=== PATIENT | male | born 1975 | race Caucasian/White ===

== ENCOUNTER 2025-05-01 10:04 | Outpatient (AMB) | payer OTHER, SELFPAY ==
--- NOTE | 2025-05-01 10:06 | MHC.PC.OV ---
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 Allergies No Known Allergies (No Known Allergies*) Allergy (Unverified 05/01/25 10:44) Medication List - Last Reconciled 05/01/25 by RADHA Mitchell No Known Home Meds Tobacco use date assessed: 05/01/25 Dental Screening Dental Screen Date: 05/01/25 Did you have a dental visit in the last 12 months?: Yes Did you have a dental problem in the last 6 months where you did not have access to dental care?: No Was dental information given to patient?: Patient has dentist HPI 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 The patient reports a history of onychomycosis affecting the great toe, which has been persistent despite the use of topical treatments. He has been advised against oral antifungal medications due to potential hepatotoxicity. The patient has vitiligo, which began approximately ten years ago at the age of 39. The condition was noted to be stress-related, as informed by a certified prosthetist vice president. The patient has a history of nephrolithiasis, with two episodes of kidney stones, the first occurring at age 29 and the second at age 42. Both episodes involved small stones that were extremely painful but did not require surgical intervention. Family history is significant for diabetes in both grandmothers, heart disease, hyperlipidemia, hypertension, and end-stage renal disease in the father, and schizophrenia in the mother. [facility] Medical History (Updated 05/02/25 @ 12:49 by RADHA Mitchell) HTN (hypertension) Heart disease Kidney stones Onychomycosis Vitiligo Surgical History No pertinent past surgical history Family History (Updated 05/02/25 @ 12:49 by RADHA Mitchell) Maternal Grandmother Diabetes Paternal Grandmother Diabetes Maternal Uncle Colon cancer Father Hypertension Heart disease Kidney failure Substance abuse Mother Mental health disorder Substance abuse Brother Substance abuse Other ESRD (end stage renal disease) HLD (hyperlipidemia) Schizophrenia Social History Household Members: Spouse and Children Housing: House Alcohol intake: current Alcohol intake frequency: a few times a month Patient Tobacco Use Status: Former Tobacco user e-Cigarette/Vaping Use: Never Used service: No Current occupational status: employed 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 1. Little interest or pleasure in doing things: not at all 2. Feeling down, depressed, or hopeless: not at all 3. Trouble falling or staying asleep, or sleeping too much: not at all 4. Feeling tired or having little energy: not at all 5. Poor appetite or overeating: not at all 6. Feeling bad about yourself - or that you are a failure or have let yourself or your family down: not at all 7. Trouble concentrating on things, such as reading the newspaper or watching television: not at all 8. Moving or speaking so slowly that other people could have noticed. Or the opposite - being so fidgety or restless that you have been moving around a lot more than usual: not at all 9. Thoughts that you would be better off or of hurting yourself in some way: not at all Total score: 0 Depression Screening Interpretation: Negative Depression Screening Done: Yes [id number] - PHQ-9 Billing: Yes Source: Developed by Drs. Remi Oneil, Dione Haider, Gaurang Haddad and colleagues, with an educational magalie from [employer]. Thrive Questionnaire Date Thrive assessed: 05/01/25 I am a: Patient What is your living situation today?: I have a steady place to live Within the past 12 months, did the food you bought not last and you didn't have the money to get more?: Never true Within the past 12 months, did you worry whether your food would run out before you got money to buy more?: Never true Do you have trouble paying for medicines?: No Do you have trouble getting transportation to medical appointments?: No Do you have trouble paying your heating and electricity bill?: No Do you have trouble taking care of your child, family member or friend?: No Do you have trouble with day-to-day activities such as bathing, preparing meals, shopping, managing finances, etc.?: No Are you currently unemployed and looking for a job?: No Are you interested in more education?: No Please select the resources that you would like help with: None Currently or been in a relationship where the following occur: No concerns reported THRIVE Score: 0 AUDIT C Alcohol Use Questionnaire (AUDIT-C) 1. How often do you have a drink containing alcohol?: 2-4 times a month 2. How many drinks containing alcohol do you have on a typical day when you are drinking?: 1 or 2 3. How often do you have six or more drinks on one occasion?: Never Total Score: 2 KYA-7 AMB Questionnaire KYA-7 Date KYA - 7 assessed: 05/01/25 Feeling nervous, anxious, or on edge: 0 = Not at all Not being able to stop or control worryin = Several days Worrying too much about different things: 1 = Several days Trouble relaxin = Not at all Being so restless that it is hard to sit still: 1 = Several days Becoming easily annoyed or irritable: 1 = Several days Feeling afraid as if something awful might happen: 0 = Not at all Total KYA-7 score (0-4 normal; 5-9 mild; 10-14 moderate; 15-21 severe): 4 Source: Developed by Drs. Remi Oneil, Dione Haider, Gaurang Haddad and colleagues, with an educational magalie from [employer] KYA-7 Assessment Billing KYA-7 Assessment Tool: KYA-7 Assessment 01790 Review of Systems Const Denies headache(s) Eyes Denies loss of vision ENT Denies vertigo, Denies dizziness, Denies headache(s) and Denies sore throat Card Denies chest pain, Denies leg edema and Denies lightheadedness Resp Denies cough, Denies hemoptysis and Denies wheezing GI Denies abdominal pain, Denies melena, Denies constipation, Reports heartburn, Denies diarrhea and Denies vomiting Denies dysuria, Denies urinary frequency and Denies urinary urgency Musc Denies arthralgias, Denies joint swelling, Denies numbness and Denies tingling Skin/Breast Reports nail changes (toenail fungus) and Reports other (vitiligo) Neuro Denies Abnormal speech present, Denies behavioral changes, Denies vertigo, Denies dizziness, Denies headache(s), Denies loss of vision, Denies memory loss, Denies numbness and Denies tingling Psych Denies anxiety, Denies behavioral changes, Denies depression, Denies memory loss and Denies panic attacks Dagoberto/Lymph Denies easy bleeding and Denies easy bruising Aller/Immun Denies wheezing Physical exam (Primary Care) Vital Signs: Last Vital Signs Temp 97.0 F 05/01/25 10:08 Pulse 96 05/01/25 10:08 BP 124/74 05/01/25 10:08 Pulse Ox 95 05/01/25 10:08 Oxygen Delivery Method Room Air 05/01/25 10:08 BMI result Body Mass Index 29.6 Tobacco/Smoking Status: Tobacco use Status Tobacco use date assessed 05/01/25 05/01/25 10:17 Patient Tobacco Use Status Former Tobacco user 05/01/25 10:17 e-Cigarette/Vaping Use Never Used 05/01/25 10:17 PHQ-9: PHQ-9 Score PHQ-9: Total score 0 05/01/25 10:52 Depression Screening Interpretation: Negative Thrive Assessment: Date of Thrive Assessment Date Thrive assessed 05/01/25 05/01/25 10:07 Currently or been in a relationship where the following occur: No concerns reported Const General: healthy appearing, no acute distress, alert and awake Nutritional Appearance: well nourished Orientation/consciousness: oriented to person, oriented to place and oriented to time HENMT Ears: TM's normal bilaterally General nose exam: Normal nasal mucous membranes and turbinates present Eyes Conjunctivae: conjunctivae normal Sclerae: sclerae normal Pupils: Equal, round and reactive pupils present Neck Neck: Yes no lymphadenopathy and Yes no JVD Thyroid: Thyroid normal Carotids: no bruits Resp Effort & Inspection: normal respiratory effort and not tachypneic Auscultation: no crackles, no rales, no rhonchi and no wheezes Cardio Rate: regular rate Rhythm: regular rhythm Heart sounds: S1 normal heart sound present, S2 normal heart sound present, no murmurs and normal S1 and S2 Peripheral pulses: Peripheral pulses 2+ throughout GI Palpation (GI): Soft to palpation, nontender, no hepatomegaly and no splenomegaly Auscultation: normal bowel sounds General: Yes no CVA tenderness Back/Spine/Pelvis Back: no CVA tenderness Skin General skin exam: dry skin Lesions: lesion noted (vitiligo widespread on extremities) Nails: discolored (right great and fourth toenails) Neuro General: oriented to person, oriented to place and oriented to time Cranial nerves: Yes Equal, round and reactive pupils present Speech: No Abnormal speech present Gait exam (Neuro): Normal gait present Motor exam (neuro): no tremor noted Extrem Right upper extremity: full ROM Left upper extremity: full ROM Right lower extremity: full ROM; no edema Left lower extremity: full ROM; no edema Psych Mental Status: mental status grossly normal Speech and movement: Normal speech and movement present Affect: normal affect Attitude: cooperative Thought process: Normal thought process present Coding Level of Care Code New Pt Level 4 (40076) Diagnoses Vitiligo L80 Onychomycosis B35.1 Additional Codes KYA-7 Assessment Billing - KYA-7 Assessment Tool: KYA-7 Assessment 52551 ([id number]) PHQ-9 - 49393 - PHQ-9 Billing: Yes ([id number]) Time Spent (min) 39 Assessment & Plan Assessment & Plan (1) Vitiligo: Code(s): L80 - Vitiligo Category: Medical (2) Onychomycosis: Code(s): B35.1 - Tinea unguium Category: Medical Plan The patient will undergo fasting laboratory tests to assess overall health status. A Cologuard test is recommended for colon cancer screening due to the patient's low-risk status. The patient is advised to return for a comprehensive physical examination and lab review to establish a detailed health plan. The patient is not currently on an treatment for vitiligo management. Will continue to monitor Toenail fungus was treated before by steel welder and he is planning on making an appt for treatment options Patient was informed and verbally consented to the use of an ambient scribe for clinic note documentation during this visit. Orders: Orders Comprehensive [place]. Panel Fast Today Z00.00 - Encounter for general adult medical examination without abnormal findings Lipid Panel Today Z00.00 - Encounter for general adult medical examination without abnormal findings TSH reflex Free T4 Today Z00.00 - Encounter for general adult medical examination without abnormal findings Complete Blood Count Auto Diff Today Z00.00 - Encounter for general adult medical examination without abnormal findings UA CC w/rflx Micro + Cult Today Z00.00 - Encounter for general adult medical examination without abnormal findings Vitamin D 25-OH Total Today Z00.00 - Encounter for general adult medical examination without abnormal findings Referrals Cologuard Test Z12.11 - Encounter for screening for malignant neoplasm of colon, Z12.12 - Encounter for screening for malignant neoplasm of rectum Cologuard Test Z12.11 - Encounter for screening for malignant neoplasm of colon, Z12.12 - Encounter for screening for malignant neoplasm of rectum
[2025-05-01 10:08] VITALS: BP 124/74; PULSE 96; TEMP 36.1; O2SAT 95; BMI 29.6
== END 2025-05-01 11:00 | disposition home or self-care (01) ==
LOC: HO.HMCH 10:04
DX: L80 Vitiligo (principal); B35.1 Tinea unguium

== ENCOUNTER → 2025-05-01 10:04 | Outpatient (BNVA) | payer OTHER, SELFPAY | DX: L80 Vitiligo (principal); B35.1 Tinea unguium; Z87.442 Personal history of urinary calculi | CPT/HCPCS: 96127 ==

== ENCOUNTER 2025-05-02 08:30 | Outpatient (REF) | payer OTHER, SELFPAY ==
[2025-05-02 08:46] LABS: MANUAL DIFF FLAG NO
[2025-05-02 09:31] LABS: Hematocrit 43.0 % (42.0-52.0); Hemoglobin 15.0 g/dl (14.0-18.0); Imm Gran Abs Auto 0.01 X10*3/uL (0.00-0.03); Imm Gran Pct Auto 0.2 % (0.0-0.4); Lymphocytes Absolute Auto 2.2 X10*3/uL (1.2-4.9); Mean Corpuscular HGB Conc 34.9 g/dl (31.0-36.0); Mean Corpuscular Hemoglobin 28.4 pg (27.0-33.0); Mean Corpuscular Volume 81.3 fL (80.0-98.0); NRBC Abs Auto 0.000 X10*3/uL (0.0-0.012); NRBC Pct Auto 0.0 /100WBC (0.0-0.2); Platelet Count 284 X10*3/uL (160-400); Red Blood Count 5.29 X10*6/uL (4.60-5.80); White Blood Count 5.3 X10*3/uL (4.8-10.8)
[2025-05-02 10:03] LABS: Alanine Aminotransferase 63 U/L (0-40); Albumin Level 4.3 g/dL (3.5-5.0); Alkaline Phosphatase 60 U/L (39-117); Anion Gap 11 (12-20); Aspartate Amino Transferase 32 U/L (5-37); Blood Urea Nitrogen 12 mg/dL (9-16); Calcium 8.4 mg/dL (8.4-10.2); Carbon Dioxide 25 mmol/L (22-29); Chloride 109 mmol/L (96-108); Cholesterol 260 mg/dL (<200); Estimated Glomerular Filt Rate > 60; HDL Cholesterol 45 mg/dL (>40); Potassium 4.2 mmol/L (3.3-5.1); Sodium 141 mmol/L (135-145); Total Protein 7.0 g/dL (6.5-8.0); Triglycerides 116 mg/dL (<150)
[2025-05-02 10:21] LABS: Appearance Urine Clear; Glucose Urine UA Negative (Negative); PH 6.5 (5.0-9.0); Specific Gravity - Urine 1.020 (1.005-1.025)
== END 2025-05-02 08:31 | disposition home or self-care (01) ==
LOC: HO.LAB 08:30
DX: Z00.00 Encounter for general adult medical examination without abnormal findings (principal)
CPT/HCPCS: 36415; 80053; 80061; 81003; 82306; 84443; 85025

== ENCOUNTER 2025-06-20 11:02 | Outpatient (AMB) | payer OTHER, SELFPAY ==
--- NOTE | 2025-06-20 11:19 | A.OFFPC_ITS ---
Vital Signs 06/20/25 11:20 Height 5 ft 8.75 in Weight 203 lb 2 oz BMI 30.2 BP 122/78 Blood Pressure Location Lt brachial Position Sitting Pulse 76 Pulse Source Pulse Oximeter Temp 97.1 F Temp Source Temporal Artery Scan Pulse Oximetry (%) 97 Oxygen Delivery Method Room Air Intake Visit Reasons: Annual Exam Intake Note: Patient is here today for a physical. 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 per policy Accompanied by: Self / Same As Patient Allergies No Known Allergies (No Known Allergies*) Allergy (Verified 06/20/25 11:26) Medication List - Last Reconciled 06/20/25 by RADHA Mitchell No Known Home Meds Tobacco use date assessed: 06/20/25 Dental Screening Dental Screen Date: 05/01/25 HPI Annual Exam HPI Details Dentist: up to date Eye: up to date Snellen: Right: Left: Corrected vision: yes-glasses STI screening: Colonoscopy: cologuard was negative Pap Smer:n/a PHQ-9: Flu: up to date COVID: x5 Tdap: 2022 Diet:reports that he likes red meat, but has been cutting back, Exercise: The patient is a 49-year-old male presenting for a wellness visit and evaluation of laboratory results. The patient has a history of hyperlipidemia, with recent laboratory results showing an LDL cholesterol level of 192 mg/dL, which is significantly elevated above the desired level of less than 100 mg/dL. The patient acknowledges a family history of hyperlipidemia and has gained weight over the past 5-6 years, reaching his heaviest weight. He reports a diet that includes red meat, pork, and sweets, with occasional exercise, although he has struggled to maintain a consistent regimen. The patient also presents with a slightly low vitamin D level, which is common in the area due to limited sunlight exposure. He has been advised to take a vitamin D supplement to address this deficiency. Additionally, the patient has an elevated liver enzyme level, which may be influenced by occasional alcohol consumption and Tylenol use. He denies any abdominal pain and reports infrequent use of alcohol and Tylenol. Preventative care measures include a recent negative result from a colon cancer screening stool test, an influenza vaccination received two days ago, and a tetanus vaccination in 2022. [facility] Medical History (Updated 06/20/25 @ 11:29 by RADHA Mitchell) HTN (hypertension) Heart disease Kidney stones Onychomycosis Vitiligo Surgical History No pertinent past surgical history Family History Maternal Grandmother Diabetes Paternal Grandmother Diabetes Maternal Uncle Colon cancer Father Hypertension Heart disease Kidney failure Substance abuse Mother Mental health disorder Substance abuse Brother Substance abuse Other ESRD (end stage renal disease) HLD (hyperlipidemia) Schizophrenia Social History Household Members: Spouse and Children Housing: House Alcohol intake: current Alcohol intake frequency: a few times a month Patient Tobacco Use Status: Former Tobacco user e-Cigarette/Vaping Use: Never Used Second Hand Smoke Exposure: Yes service: No Current occupational status: employed 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 needs: No Hearing needs: No Vision needs: Yes Questionnaire Thrive Questionnaire Date Thrive assessed: 05/01/25 I am a: Patient What is your living situation today?: I have a steady place to live Within the past 12 months, did the food you bought not last and you didn't have the money to get more?: Never true Within the past 12 months, did you worry whether your food would run out before you got money to buy more?: Never true Do you have trouble paying for medicines?: No Do you have trouble getting transportation to medical appointments?: No Do you have trouble paying your heating and electricity bill?: No Do you have trouble taking care of your child, family member or friend?: No Do you have trouble with day-to-day activities such as bathing, preparing meals, shopping, managing finances, etc.?: No Are you currently unemployed and looking for a job?: No Are you interested in more education?: No Please select the resources that you would like help with: None Currently or been in a relationship where the following occur: No concerns reported THRIVE Score: 0 KYA-7 AMB Questionnaire KYA-7 Date KYA - 7 assessed: 05/01/25 Source: Developed by Drs. Remi Oneil, Dione Haider, Gaurang Haddad and colleagues, with an educational magalie from [employer]. Review of Systems Const Denies headache(s) Eyes Denies loss of vision ENT Denies vertigo, Denies dizziness, Denies headache(s) and Denies sore throat Card Denies chest pain, Denies leg edema and Denies lightheadedness Resp Denies cough, Denies hemoptysis and Denies wheezing GI Denies abdominal pain, Denies melena, Denies constipation, Denies diarrhea and Denies vomiting Denies dysuria, Denies urinary frequency and Denies urinary urgency Musc Denies arthralgias, Denies joint swelling, Denies numbness and Denies tingling Neuro Denies Abnormal speech present, Denies behavioral changes, Denies vertigo, Denies dizziness, Denies headache(s), Denies loss of vision, Denies memory loss, Denies numbness and Denies tingling Psych Denies anxiety, Denies behavioral changes, Denies depression, Denies memory loss and Denies panic attacks Dagoberto/Lymph Denies easy bleeding and Denies easy bruising Aller/Immun Denies wheezing Physical exam (Primary Care) Vital Signs: Last Vital Signs Temp 97.1 F 06/20/25 11:20 Pulse 76 06/20/25 11:20 BP 122/78 06/20/25 11:20 Pulse Ox 97 06/20/25 11:20 Oxygen Delivery Method Room Air 06/20/25 11:20 BMI result Body Mass Index 30.2 Tobacco/Smoking Status: Tobacco use Status Tobacco use date assessed 06/20/25 06/20/25 11:24 Patient Tobacco Use Status Former Tobacco user 06/20/25 11:24 e-Cigarette/Vaping Use Never Used 06/20/25 11:24 Thrive Assessment: Date of Thrive Assessment Date Thrive assessed 05/01/25 06/20/25 11:24 Currently or been in a relationship where the following occur: No concerns reported Const General: healthy appearing, no acute distress, alert and awake Nutritional Appearance: well nourished Orientation/consciousness: oriented to person, oriented to place and oriented to time HENMT Ears: TM's normal bilaterally General nose exam: Normal nasal mucous membranes and turbinates present Eyes Conjunctivae: conjunctivae normal Sclerae: sclerae normal Pupils: Equal, round and reactive pupils present Neck Neck: Yes no lymphadenopathy and Yes no JVD Thyroid: Thyroid normal Carotids: no bruits Resp Effort & Inspection: normal respiratory effort and not tachypneic Auscultation: no crackles, no rales, no rhonchi and no wheezes Cardio Rate: regular rate Rhythm: regular rhythm Heart sounds: no murmurs and normal S1 and S2 GI Palpation (GI): Soft to palpation, nontender, no hepatomegaly and no splenomegaly Auscultation: normal bowel sounds Skin General skin exam: no rashes or lesions noted and dry skin Neuro General: oriented to person, oriented to place and oriented to time Cranial nerves: Yes Equal, round and reactive pupils present Speech: No Abnormal speech present Gait exam (Neuro): Normal gait present Motor exam (neuro): no tremor noted Deep tendon reflexes (DTR's): Right triceps reflex intensity grade: 2+, Left triceps reflex intensity grade: 2+, Rt Biceps (C5, C6): 2+, Left biceps reflex intensity grade: 2+, Right brachioradialis reflex intensity grade: 2+, Left brachioradialis reflex intensity grade: 2+, Right patellar reflex intensity grad e: 2+ and Left patellar reflex intensity grade: 2+ Extrem Right upper extremity: full ROM Left upper extremity: full ROM Right lower extremity: full ROM; no edema Left lower extremity: full ROM; no edema Psych Mental Status: mental status grossly normal Speech and movement: Normal speech and movement present Affect: normal affect Attitude: cooperative Thought process: Normal thought process present Results Reviewed Results Reviewed: Laboratory Tests 05/02/25 05/02/25 08:38 08:45 WBC 5.3 RBC 5.29 Hgb 15.0 Hct 43.0 MCV 81.3 MCH 28.4 MCHC 34.9 RDW 13.4 Plt Count 284 MPV 10.7 Immature Gran % (Auto) 0.2 Neut % (Auto) 48.6 Lymph % (Auto) 41.3 H Sodium 141 Potassium 4.2 Chloride 109 H Carbon Dioxide 25 Anion Gap 11 L BUN 12 Creatinine 0.72 Estimated GFR > 60 Fasting Glucose 100 H Calcium 8.4 Total Bilirubin 0.4 AST 32 ALT 63 H Alkaline Phosphatase 60 Total Protein 7.0 Albumin 4.3 Triglycerides 116 Cholesterol 260 H LDL Cholesterol, Calc 192 H HDL Cholesterol 45 25-OH Vitamin D Total 24.6 L TSH 1.29 Urine Color Yellow Urine Appearance Clear Urine pH 6.5 Ur Specific [place] 1.020 Urine Protein Negative Urine Glucose (UA) Negative Urine Ketones Negative Urine Blood Negative Urine Nitrite Negative Ur Leukocyte Esterase Negative Coding Level of Care Code Est Pt Prev Care 40-64y([id number]) Diagnoses Annual physical exam Z00.00 Onychomycosis B35.1 Vitiligo L80 Hyperlipidemia, unspecified hyperlipidemia type E78.5 Hyperlipidemia type: unspecified Vitamin D deficiency E55.9 ALT (SGPT) level raised R74.01 Time Spent (min) 37 Assessment & Plan Assessment & Plan (1) Annual physical exam: Code(s): Z00.00 - Encounter for general adult medical examination without abnormal findings Category: Medical Plan: - Colon cancer screening: Negative stool test result - Influenza vaccination: Administered two days ago - Tetanus vaccination: Administered in 2022 - Vitamin D supplementation recommended due to deficiency (2) Onychomycosis: Code(s): B35.1 - Tinea unguium Category: Medical Plan: Toenail fungus was treated before by animal nutrition teacher and he is planning on making an appt for treatment options (3) Vitiligo: Code(s): L80 - Vitiligo Category: Medical Plan: The patient is not currently on an treatment for vitiligo management. Will continue to monitor (4) HLD (hyperlipidemia): Code(s): E78.5 - Hyperlipidemia, unspecified Category: Medical Qualifiers: Hyperlipidemia type: unspecified Qualified Code(s): E78.5 - Hyperlipi demia, unspecified Plan: The patient has been advised to make dietary changes to reduce cholesterol intake, including moderating consumption of red meat, pork, and fried foods. A low-dose statin, rosuvastatin 5 mg, has been prescribed to help lower LDL cholesterol levels. Follow-up blood work is planned in three months to assess the effectiveness of the treatment and dietary modifications. (5) Vitamin D deficiency: Code(s): E55.9 - Vitamin D deficiency, unspecified Category: Medical Plan: The patient is recommended to take a vitamin D supplement, either 50 mcg or 2000 units, to address the deficiency. The supplementation is suggested due to limited sunlight exposure in the area, which contributes to the deficiency. (6) ALT (SGPT) level raised: Code(s): R74.01 - Elevation of levels of liver transaminase levels Category: Medical Plan: The patient is advised to monitor alcohol and Tylenol intake, as these can contribute to elevated liver enzymes. Re-evaluation of liver function is suggested during the next follow-up visit. Orders: Orders Comprehensive [place]. Panel Fast 3 Months E55.9 - Vitamin D deficiency, unspecified, E78.5 - Hyperlipidemia, unspecified, R74.01 - Elevation of levels of liver transaminase levels Lipid Panel 3 Months E55.9 - Vitamin D deficiency, unspecified, E78.5 - Hype rlipidemia, unspecified, R74.01 - Elevation of levels of liver transaminase levels TSH reflex Free T4 3 Months E55.9 - Vitamin D deficiency, unspecified, E78.5 - Hyperlipidemia, unspecified, R74.01 - Elevation of levels of liver transaminase levels UA CC w/rflx Micro + Cult 3 Months E55.9 - Vitamin D deficiency, unspecified, E78.5 - Hyperlipidemia, unspecified, R74.01 - Elevation of levels of liver transaminase levels Vitamin D 25-OH Total 3 Months E55.9 - Vitamin D deficiency, unspecified, E78.5 - Hyperlipidemia, unspecified, R74.01 - Elevation of levels of liver transaminase levels Medications: New cholecalciferol (vitamin D3) 50 mcg PO DAILY 90 caps 3RF rosuvastatin 5 mg PO DAILY 90 tabs 3RF
[2025-06-20 11:20] VITALS: BP 122/78; PULSE 76; TEMP 36.2; O2SAT 97; BMI 30.2
== END 2025-06-20 11:51 | disposition home or self-care (01) ==
LOC: HO.HMCH 11:03
DX: Z00.00 Encounter for general adult medical examination without abnormal findings (principal); B35.1 Tinea unguium; L80 Vitiligo; E78.5 Hyperlipidemia, unspecified; E55.9 Vitamin D deficiency, unspecified; R74.01 Elevation of levels of liver transaminase levels

== ENCOUNTER 2025-07-03 13:16 | Outpatient (REF) | payer OTHER, SELFPAY ==
[2025-07-03 14:56] LABS: Alanine Aminotransferase 36 U/L (0-40); Albumin Level 4.7 g/dL (3.5-5.0); Alkaline Phosphatase 55 U/L (39-117); Anion Gap 10 (12-20); Aspartate Amino Transferase 32 U/L (5-37); Blood Urea Nitrogen 10 mg/dL (9-16); Calcium 9.4 mg/dL (8.4-10.2); Carbon Dioxide 26 mmol/L (22-29); Chloride 106 mmol/L (96-108); Cholesterol 185 mg/dL (<200); Estimated Glomerular Filt Rate > 60; HDL Cholesterol 44 mg/dL (>40); Potassium 4.0 mmol/L (3.3-5.1); Sodium 138 mmol/L (135-145); Total Protein 7.2 g/dL (6.5-8.0); Triglycerides 108 mg/dL (<150)
== END 2025-07-03 13:17 | disposition home or self-care (01) ==
LOC: HO.LAB 13:16
PROVIDERS: Visit Provider Student in an Organized Health Care Education/Training Program
DX: B35.1 Tinea unguium (principal); R74.01 Elevation of levels of liver transaminase levels; E78.5 Hyperlipidemia, unspecified; E55.9 Vitamin D deficiency, unspecified
CPT/HCPCS: 36415; 80053; 80061; 82306; 84443

== ENCOUNTER 2025-09-13 13:46 | Outpatient (REF) | payer OTHER, SELFPAY ==
[2025-09-13 15:21] LABS: Alanine Aminotransferase 57 U/L (0-40); Albumin Level 4.8 g/dL (3.5-5.0); Alkaline Phosphatase 62 U/L (39-117); Aspartate Amino Transferase 65 U/L (5-37); Total Protein 7.5 g/dL (6.5-8.0)
== END 2025-09-13 13:47 | disposition home or self-care (01) ==
LOC: HO.LAB 13:46
PROVIDERS: Visit Provider Student in an Organized Health Care Education/Training Program
DX: B35.1 Tinea unguium (principal)
CPT/HCPCS: 36415; 80076

== ENCOUNTER 2025-09-19 13:51 | Outpatient (AMB) | payer OTHER, SELFPAY ==
[2025-09-19 14:22] VITALS: BP 122/80; PULSE 78; TEMP 36.2; O2SAT 96
--- NOTE | 2025-09-19 14:22 | MHC.PC.OV ---
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 The patient is under the care of a metal furniture assembler for a nail condition and was started on an antifungal medication. Blood work was performed twice, initially showing normal liver enzymes, but a subsequent test revealed a slight elevation. The patient is also on cholesterol medication, which he takes regularly. He was aware that his metal furniture assembler monitors liver enzymes due to the antifungal treatment, which can cause them to increase. 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 Results - Labs: Recent blood work shows slightly elevated liver enzymes. - Labs: Cholesterol has come down slightly. [facility] Medical History (Updated 09/19/25 @ 14:44 by RADHA Mitchell) HTN (hypertension) Heart disease Kidney stones Onychomycosis Vitiligo Surgical History No pertinent past surgical history Family History Maternal Grandmother Diabetes Paternal Grandmother Diabetes Maternal Uncle Colon cancer Father Hypertension Heart disease Kidney failure Substance abuse Mother Mental health disorder Substance abuse Brother Substance abuse Other ESRD (end stage renal disease) HLD (hyperlipidemia) Schizophrenia Social History Household Members: Spouse and Children Housing: House Alcohol intake: current Alcohol intake frequency: a few times a month Patient Tobacco Use Status: Former Tobacco user e-Cigarette/Vaping Use: Never Used Second Hand Smoke Exposure: Yes service: No Current occupational status: employed Current occupation: Cognitive needs: No Hearing needs: No Vision needs: Yes Questionnaire Thrive Questionnaire Date Thrive assessed: 05/01/25 I am a: Patient What is your living situation today?: I have a steady place to live Within the past 12 months, did the food you bought not last and you didn't have the money to get more?: Never true Within the past 12 months, did you worry whether your food would run out before you got money to buy more?: Never true Do you have trouble paying for medicines?: No Do you have trouble getting transportation to medical appointments?: No Do you have trouble paying your heating and electricity bill?: No Do you have trouble taking care of your child, family member or friend?: No Do you have trouble with day-to-day activities such as bathing, preparing meals, shopping, managing finances, etc.?: No Are you currently unemployed and looking for a job?: No Are you interested in more education?: No Please select the resources that you would like help with: None Currently or been in a relationship where the following occur: No concerns reported THRIVE Score: 0 KYA-7 AMB Questionnaire KYA-7 Date KYA - 7 assessed: 05/01/25 Source: Developed by Drs. Remi Oneil, Dione Haider, Gaurang Haddad and colleagues, with an educational magalie from [employer]. Review of Systems Narrative Review of Systems - Cardiovascular: Denies chest pain. - Respiratory: Denies dyspnea. Const Denies headache(s) Eyes Denies loss of vision ENT Denies vertigo, Denies dizziness, Denies headache(s) and Denies sore throat Card Denies chest pain, Denies leg edema and Denies lightheadedness Resp Denies cough, Denies hemoptysis and Denies wheezing GI Denies abdominal pain, Denies melena, Denies constipation, Denies diarrhea and Denies vomiting Denies dysuria, Denies urinary frequency and Denies urinary urgency Musc Denies arthralgias, Denies joint swelling, Denies numbness and Denies tingling Neuro Denies Abnormal speech present, Denies behavioral changes, Denies vertigo, Denies dizziness, Denies headache(s), Denies loss of vision, Denies memory loss, Denies numbness and Denies tingling Psych Denies anxiety, Denies behavioral changes, Denies depression, Denies memory loss and Denies panic attacks Dagoberto/Lymph Denies easy bleeding and Denies easy bruising Aller/Immun Denies wheezing Physical exam (Primary Care) Vital Signs: Last Vital Signs Temp 97.1 F 09/19/25 14:22 Pulse 78 09/19/25 14:22 BP 122/80 09/19/25 14:22 Pulse Ox 96 09/19/25 14:22 Oxygen Delivery Method Room Air 09/19/25 14:22 BMI result Body Mass Index 30.0 Tobacco/Smoking Status: Tobacco use Status Tobacco use date assessed 09/19/25 09/19/25 14:25 Patient Tobacco Use Status Former Tobacco user 09/19/25 14:25 e-Cigarette/Vaping Use Never Used 09/19/25 14:25 Thrive Assessment: Date of Thrive Assessment Date Thrive assessed 05/01/25 09/19/25 14:25 Currently or been in a relationship where the following occur: No concerns reported Narrative Physical Exam - Respiratory: Lungs clear to auscultation. Const General: healthy appearing, no acute distress, alert and awake Nutritional Appearance: well nourished Orientation/consciousness: oriented to person, oriented to place and oriented to time HENMT Ears: TM's normal bilaterally General nose exam: Normal nasal mucous membranes and turbinates present Eyes Conjunctivae: conjunctivae normal Sclerae: sclerae normal Pupils: Equal, round and reactive pupils present Neck Neck: Yes no lymphadenopathy and Yes no JVD Thyroid: Thyroid normal Carotids: no bruits Resp Effort & Inspection: normal respiratory effort and not tachypneic Auscultation: no crackles, no rales, no rhonchi and no wheezes Cardio Rate: regular rate Rhythm: regular rhythm Heart sounds: no murmurs and normal S1 and S2 GI Palpation (GI): Soft to palpation, nontender, no hepatomegaly and no splenomegaly Auscultation: normal bowel sounds Skin General skin exam: no rashes or lesions noted and dry skin Neuro General: oriented to person, oriented to place and oriented to time Cranial nerves: Yes Equal, round and reactive pupils present Speech: No Abnormal speech present Gait exam (Neuro): Normal gait present Motor exam (neuro): no tremor noted Extrem Right upper extremity: full ROM Left upper extremity: full ROM Right lower extremity: full ROM; no edema Left lower extremity: full ROM; no edema Psych Mental Status: mental status grossly normal Speech and movement: Normal speech and movement present Affect: normal affect Attitude: cooperative Thought process: Normal thought process present Results Reviewed Results Reviewed: Laboratory Tests 07/03/25 09/13/25 13:37 14:07 Sodium 138 Potassium 4.0 Chloride 106 Carbon Dioxide 26 Anion Gap 10 L BUN 10 Creatinine 0.84 Estim Creat Clear Calc Not Reportable Estimated GFR > 60 Fasting Glucose 94 Calcium 9.4 D Total Bilirubin 0.5 0.5 Direct Bilirubin 0.1 AST 32 65 H ALT 36 57 H Alkaline Phosphatase 55 62 Total Protein 7.2 7.5 Albumin 4.7 4.8 Triglycerides 108 Cholesterol 185 LDL Cholesterol, Calc 120 H HDL Cholesterol 44 25-OH Vitamin D Total 29.9 L TSH 0.85 Coding Level of Care Code Est Pt Level 3 (07966) Diagnoses Onychomycosis B35.1 Vitiligo L80 Hyperlipidemia, unspecified hyperlipidemia type E78.5 Hyperlipidemia type: unspecified Vitamin D deficiency E55.9 ALT (SGPT) level raised R74.01 Time Spent (min) 29 Assessment & Plan Assessment & Plan (1) Onychomycosis: Code(s): B35.1 - Tinea unguium Category: Medical Plan: The patient is being treated by a metal furniture assembler with an antifungal medication for a nail condition, which requires monitoring of his liver enzymes. He was advised to inform the metal furniture assembler about his current cholesterol medication as it may also affect liver enzyme levels. Will continue to co-monitor liver function but primary management of this condition remains with the metal furniture assembler. (2) Vitiligo: Code(s): L80 - Vitiligo Category: Medical Plan: The patient is not currently on an treatment for vitiligo management. Will continue to monitor (3) HLD (hyperlipidemia): Code(s): E78.5 - Hyperlipidemia, unspecified Category: Medical Qualifiers: Hyperlipidemia type: unspecified Qualified Code(s): E78.5 - Hyperlipidemia, unspecified Plan: The patient's cholesterol medication has resulted in some improvement. In light of the slightly elevated liver enzymes, the current dose will be maintained, with a plan to recheck labs in three months, by which time his antifungal treatment should be complete. (4) Vitamin D deficiency: Code(s): E55.9 - Vitamin D deficiency, unspecified Category: Medical Plan: The patient is recommended to take a vitamin D supplement, either 50 mcg or 2000 units, to address the deficiency. The supplementation is suggested due to limited sunlight exposure in the area, which contributes to the deficiency. (5) ALT (SGPT) level raised: Code(s): R74.01 - Elevation of levels of liver transaminase levels Category: Medical Plan: The patient is advised to monitor alcohol and Tylenol intake, as these can contribute to elevated liver enzymes. Re-evaluation of liver function is suggested during the next follow-up visit. Plan Plan Patient was informed and verbally consented to the use of an ambient scribe for clinic note documentation during this visit. 1. Hypercholesterolemia The patient's cholesterol medication has resulted in some improvement. In light of the slightly elevated liver enzymes, the current dose will be maintained, with a plan to recheck labs in three months, by which time his antifungal treatment should be complete. 2. Elevated Liver Enzymes Recent lab work revealed slightly elevated liver enzymes, which may be multifactorial, potentially related to both his cholesterol medication and the new antifungal treatment for his nail condition. Advised the patient to follow up with his metal furniture assembler regarding these results. The liver enzymes will be monitored with repeat labs in three months. 3. Onychomycosis The patient is being treated by a metal furniture assembler with an antifungal medication for a nail condition, which requires monitoring of his liver enzymes. He was advised to inform the metal furniture assembler about his current cholesterol medication as it may also affect liver enzyme levels. Will continue to co-monitor liver function but primary management of this condition remains with the metal furniture assembler. Discussion Notes I discussed with the patient that his recent lab results showed slightly elevated liver enzymes. I explained that this could be related to either the antifungal medication prescribed by his metal furniture assembler or his cholesterol medication, or a combination of both. I advised him to follow up with his metal furniture assembler to review these results, as they are monitoring his liver function while on the antifungal treatment. I also informed him that his cholesterol has improved slightly, and due to the liver enzyme elevation, I would not change his cholesterol medication dose at this time. We will recheck his labs in three months, and he will schedule a follow-up appointment at that time. Patient Instructions - Continue taking your cholesterol medication at the current dose. - Make sure to follow up with your metal furniture assembler to discuss your recent lab results, as the antifungal medication you are taking can affect your liver. - We will recheck your blood work, including liver tests and cholesterol, in three months. - Please schedule a follow-up appointment for three months from now to review the new lab results. Orders: Orders UA CC w/rflx Micro + Cult 3 Months E55.9 - Vitamin D deficiency, unspecified, E78.5 - Hyperlipidemia, unspecified, R74.8 - Abnormal levels of other serum enzymes TSH reflex Free T4 3 Months E55.9 - Vitamin D deficiency, unspecified, E78.5 - Hyperlipidemia, unspecified, R74.8 - Abnormal levels of other serum enzymes Vitamin D 25-OH Total 3 Months E55.9 - Vitamin D deficiency, unspecified, E78.5 - Hyperlipidemia, unspecified, R74.8 - Abnormal levels of other serum enzymes Complete Blood Count Auto Diff 3 Months E55.9 - Vitamin D deficiency, unspecified, E78.5 - Hyperlipidemia, unspecified, R74.8 - Abnormal levels of other serum enzymes Prothrombin Time INR 3 Months E55.9 - Vitamin D deficiency, unspecified, E78.5 - Hyperlipidemia, unspecified, R74.8 - Abnormal levels of other serum enzymes Lipid Panel 3 Months E55.9 - Vitamin D deficiency, unspecified, E78.5 - Hyperlipidemia, unspecified, I10 - Essential (primary) hypertension, R74.8 - Abnormal levels of other serum enzymes Hepatitis A,B,C Profile 3 Months E55.9 - Vitamin D deficiency, unspecified, E78.5 - Hyperlipidemia, unspecified, R74.8 - Abnormal levels of other serum enzymes Comprehensive Chili. Panel Fast 3 Months E55.9 - Vitamin D deficiency, unspecified, E78.5 - Hyperlipidemia, unspecified, R74.8 - Abnormal levels of other serum enzymes Ferritin 3 Months E55.9 - Vitamin D deficiency, unspecified, E78.5 - Hyperlipidemia, unspecified, R74.8 - Abnormal levels of other serum enzymes
== END 2025-09-19 14:47 | disposition home or self-care (01) ==
LOC: HO.HMCH 13:52
DX: B35.1 Tinea unguium (principal); L80 Vitiligo; E78.5 Hyperlipidemia, unspecified; E55.9 Vitamin D deficiency, unspecified; R74.01 Elevation of levels of liver transaminase levels